=== PATIENT | female | born 1950 | race Caucasian/White ===

== ENCOUNTER → 2016-09-23 | Outpatient (CLI) | payer BC ==
--- NOTE | 2016-09-23 08:33 | US ---
EXAMINATION TYPE: US kidneys/renal and bladder DATE OF EXAM: 09/23/2016 7:46 AM COMPARISON: NONE CLINICAL HISTORY: ABN Renal Function Test R94.4, Chronic Kidney Dis. EXAM MEASUREMENTS: Right Kidney: 9.1 x 4.9 x 4.7cm Left Kidney: 9.6 x 5.2 x 6.4cm TECHNOLOGIST IMPRESSION: wnl Right Kidney: wnl Left Kidney: 2.9cm simple cyst seen superior pole Bladder: wnl Bilateral Jets seen: left jet seen There is no evidence for hydronephrosis at this point in time. No nephrolithiasis is seen. No leeann s are identified. The urinary bladder is anechoic. Bilateral ureteral jets are seen. IMPRESSION: Simple appearing, 2.9 cm, left upper Pole renal cyst.
== END | disposition home or self-care (01) ==
LOC: RADUSWWP 06:56
PROVIDERS: ATTEND Family Medicine
DX: N28.1 Cyst of kidney, acquired (principal); N18.1 Chronic kidney disease, stage 1
CPT/HCPCS: 76770

== ENCOUNTER → 2016-11-12 | Outpatient (CLI) | payer BC ==
[2016-11-12 10:41] LABS: CH 28.1; CHCM 32.4; HCT 44.4 % (34.0-46.0); HDW 2.42; HGB 14.2 gm/dL (11.4-16.0); MCH 27.9 pg (25.0-35.0); MCHC 32.1 g/dL (31.0-37.0); MCV 86.9 fL (80.0-100.0); Mean Platelet Volume 6.3; RBC 5.11 m/uL (3.80-5.40); RDW 13.2 % (11.5-15.5); WBC 7.9 k/uL (3.8-10.6)
[2016-11-12 10:44] LABS: ALT 37 U/L (9-52); AST 24 U/L (14-36); Alkaline Phosphatase 84 U/L (38-126); Anion Gap 9 mmol/L; Blood Urea Nitrogen 22 mg/dL (7-17); Calcium 9.4 mg/dL (8.4-10.2); Carbon Dioxide 26 mmol/L (22-30); Chloride 106 mmol/L (98-107); Glucose 102 mg/dL (74-99); Non-African American GFR(MDRD) 50 (>60 ml/min/1.73 sqM); Phosphorous 3.1 mg/dL (2.5-4.5); Potassium 4.3 mmol/L (3.5-5.1); Sodium 141 mmol/L (137-145); Total Bilirubin 0.6 mg/dL (0.2-1.3); Total Protein 6.8 g/dL (6.3-8.2)
[2016-11-12 10:49] LABS: Appearance,Urine Cloudy (Clear); Bilirubin,Urine Negative (Negative); Glucose,Urine (UA) Negative (Negative); Ketones,Urine Negative (Negative); Leukocyte Esterase,Urine Large (Negative); Mucus,Urine Few /hpf; Nitrite,Urine Negative (Negative); PH, Urine 5.5 (5.0-8.0); Particle Count 9071; Protein,Urine Trace (Negative); RBC,Urine 2 /hpf (0-5); Specific Gravity,Urine 1.017 (1.001-1.035); Squamous Epithelial Cell,Urine 5 /hpf (0-4); UA Billing (MACRO vs. MICRO) MICRO; Urobilinogen,Urine <2.0 mg/dL (<2.0); WBC,Urine 8 /hpf (0-5)
== END | disposition home or self-care (01) ==
LOC: LABWHC1 09:53
PROVIDERS: ATTEND Internal Medicine Nephrology
DX: D64.9 Anemia, unspecified (principal); E83.39 Other disorders of phosphorus metabolism; N39.0 Urinary tract infection, site not specified
CPT/HCPCS: 36415; 80053; 81001; 84100; 85027

== ENCOUNTER → 2017-08-24 | Outpatient (CLI) | payer MEDICARE ==
--- NOTE | 2017-08-25 09:16 | MM ---
Reason for exam: screening (asymptomatic). Last mammogram was performed 1 year and 1 month ago. History: Patient is postmenopausal. Family history of breast cancer in maternal aunt at age 43. Physical Findings: A clinical breast exam by your physician is recommended on an annual basis and results should be correlated with mammographic findings. MG 3D Screening Mammo W/Cad Bilateral CC and MLO view(s) were taken. Prior study comparison: July 09, 2016, bilateral MG screening mammo w CAD. May 16, 2015, bilateral MG screening mammo w CAD. June 14, 2008, mammogram, performed at [facility]. There are scattered fibroglandular densities. Finding: There are typically benign round calcifications in the right breast. There is no discrete abnormality. ASSESSMENT: Benign, BI-RAD 2 RECOMMENDATION: Routine screening mammogram of both breasts in 1 year.
== END | disposition home or self-care (01) ==
LOC: RADMAMWWP 12:30
PROVIDERS: ATTEND Family Medicine
DX: Z12.31 Encounter for screening mammogram for malignant neoplasm of breast (principal); Z80.3 Family history of malignant neoplasm of breast
CPT/HCPCS: 77063; 77067

== ENCOUNTER → 2018-06-22 | Outpatient (CLI) | payer MEDICARE ==
--- NOTE | 2018-06-22 12:48 | FL ---
EXAMINATION TYPE: FL barium swallow w video DATE OF EXAM: 06/22/2018 COMPARISON: NONE HISTORY: Reflux, dysphasia. The patient was evaluated in the lateral projection during real-time fluoroscopy, during ingestion of barium mixed with solids and liquids. No aspiration or laryngeal penetration. See report from [facility]. 44 seconds fluoroscopy time. No images obtained.
== END | disposition home or self-care (01) ==
LOC: RADFLMAIN 10:36
PROVIDERS: ATTEND Surgery
DX: R13.10 Dysphagia, unspecified (principal)
CPT/HCPCS: 74230

== ENCOUNTER → 2018-06-23 | Outpatient (CLI) | payer MEDICARE ==
--- NOTE | 2018-06-23 08:53 | FL ---
Barium swallow HISTORY: Dysphagia Patient was given high density barium to drink. 1.32 minutes fluoroscopy time, 12 images obtained. Note is made of a poor stripping wave. Tertiary esophageal contractions are identified. Sliding hiata l hernia is noted. Reflux from the mid to distal esophagus is noted proximally during the course of t he exam. Gastroesophageal reflux was not identified. No obstruction to flow, no evident extrinsic les ion. IMPRESSION: Tertiary esophageal contractions, poor stripping wave, sliding hiatal hernia.
== END | disposition home or self-care (01) ==
LOC: RADFLWHC 07:44
PROVIDERS: ATTEND Surgery
DX: K44.9 Diaphragmatic hernia without obstruction or gangrene (principal); K22.8 Other specified diseases of esophagus; R13.10 Dysphagia, unspecified
CPT/HCPCS: 74220

== ENCOUNTER → 2018-07-12 | Outpatient (CLI) | payer MEDICARE ==
--- NOTE | 2018-07-13 18:26 | ECHOS ---
STRESS ECHOCARDIOGRAM DATE OF SERVICE: 07/12/2018 INDICATIONS: Chest discomfort. MEDICATIONS: Maxalt. BASELINE HEART RATE: 72 BASELINE BLOOD PRESSURE: 133/98 MAXIMUM HEART RATE: 155 MAXIMUM BLOOD PRESSURE: 186/82 85% MPHR: 131 100% MPHR: 154 METS: 7.9 MAXIMUM STAGE REACHED: II TOTAL EXERCISE TIME: 6:31 CLINICAL INFORMATION: STRESS DATA: Pre-testing physical examination showed a heart rate of 72, pressure 133/98 mmHg. Baseline EKG showed sinus mechanism. The patient exercised on the treadmill according to Dashawn protocol for a total of 6 minutes and 31 seconds and achieved 7.9 METS. Maximum heart rate was 155, which is about 100% of maximum predicted heart rate. Maximum blood pressure was 186/52 mmHg. Clinically the patient developed chest discomfort and shortness of breath in response to exercise. The EKG showed about 1 to 1.5 mm horizontal and downsloping ST-segment changes. ECHOCARDIOGRAM IMAGES: Echocardiogram images from parasternal long axis view, parasternal short axis view, apical 4-chamber and apical 2-chamber views were obtained as baseline images at the peak of the heart rate as well as on recovery. The echocardiogram images did not show any evidence of wall motion abnormalities concerning for ischemia. CONCLUSION: 1. Good exercise tolerance. 2. Abnormal EKG in response to exercise with about 1.[address]-segment changes concerning for ischemia. 3. Chest discomfort and shortness of breath in response to exercise as well. 4. Normal echocardiogram in response to exercise without any evidence of wall motion abnormalities concerning for ischemia. MMODL / IJN: [id number] /
== END | disposition home or self-care (01) ==
LOC: RADNMMAIN 08:57
PROVIDERS: ATTEND Family Medicine
DX: R94.31 Abnormal electrocardiogram [ECG] [EKG] (principal); R07.89 Other chest pain; R06.02 Shortness of breath; Z88.2 Allergy status to sulfonamides
CPT/HCPCS: 93351

== ENCOUNTER 2018-07-21 14:20 | Emergency (ER) | payer MEDICARE ==
[2018-07-21 14:41] VITALS: TEMP 97.9
[2018-07-21 15:41] LABS: Basophils # (A) 0.1 k/uL (0-0.2); Basophils % (A) 1 %; Eosinophils # (A) 0.1 k/uL (0-0.7); Eosinophils % (A) 1 %; HCT 46.6 % (34.0-46.0); HGB 14.9 gm/dL (11.4-16.0); Lymphocytes # (A) 1.8 k/uL (1.0-4.8); Lymphocytes % (A) 21 %; MCH 27.4 pg (25.0-35.0); MCHC 31.9 g/dL (31.0-37.0); MCV 85.8 fL (80.0-100.0); Monocytes # (A) 0.4 k/uL (0-1.0); Monocytes % (A) 4 %; Neutrophils # (A) 6.3 k/uL (1.3-7.7); Neutrophils % (A) 72 %; Platelet Count 405 k/uL (150-450); RBC 5.43 m/uL (3.80-5.40); RDW 13.5 % (11.5-15.5); WBC 8.8 k/uL (3.8-10.6)
[2018-07-21 15:52] LABS: Albumin 4.6 g/dL (3.5-5.0); Calcium 10.2 mg/dL (8.4-10.2); Creatine Kinase 171 U/L (30-135); Magnesium 2.3 mg/dL (1.6-2.3); Partial Thromboplastin Time 23.9 sec (22.0-30.0); Potassium 4.3 mmol/L (3.5-5.1); Prothrombin Time 9.6 sec (9.0-12.0); Total Bilirubin 0.4 mg/dL (0.2-1.3); Total Protein 7.5 g/dL (6.3-8.2)
--- NOTE | 2018-07-21 15:53 | XR ---
EXAMINATION TYPE: XR chest 2V DATE OF EXAM: 07/21/2018 COMPARISON: NONE TECHNIQUE: PA and lateral views submitted. HISTORY: Chest pain FINDINGS: The lungs are clear and there is no pneumothorax, pleural effusion, or focal pneumonia. Hypertrophi c change of the spine noted. No overt failure. Biapical pleural thickening. IMPRESSION: 1. No acute process.
[2018-07-21 16:03] LABS: Creatine Kinase MB 3.3 ng/mL (0.0-2.4); Troponin I <0.012 ng/mL (0.000-0.034)
[2018-07-21 17:25] VITALS: RESP 16
--- NOTE | 2018-07-21 18:11 | ED ---
Chest Pain HPI - General Chief Complaint: Chest Pain Stated Complaint: chest pain, into arm and back Time Seen by Provider: 07/21/18 17:13 Source: patient, RN notes reviewed, old records reviewed Mode of arrival: wheelchair Limitations: no limitations - History of Present Illness Initial Comments: This is a 67-year-old female the ER for evaluation. She presents today with new chest pain chest pain left-sided left arm. A she has no significant cardiac risk factors no prior cardiac disease. Patient was seen by her family doctor secondary to chronic chest pain for about 3 months chest pain was underneath her left breast. She did have an outpatient stress test which she was told was ischemic, she followed up with cardiology. Cardiology did not make appointment until the middle of this next months. Patient states pain has persisted worse with exact worse with exercise, she does get diaphoretic. Patient is having continued pain currently MD Complaint: chest pain -: month(s) (3) Onset: during rest, during exertion Pain Location: left chest Pain Radiation: LUE Severity: moderate Severity scale (1-10): 4 Quality: tightness, aching, heaviness Consistency: constant Improves With: nothing Worsens With: exertion Anginal Symptoms: diaphoresis, dyspnea Other Symptoms: other (None) Treatments Prior to Arrival: none - Related Data Home Medications Medication Instructions Recorded Confirmed Rizatriptan Benzoate [Maxalt] 10 mg PO BID PRN 05/22/15 07/21/18 [id number] 1 - 2 tab PO Q4HR PRN 07/21/18 07/21/18 [Excedrin] Allergies Allergy/AdvReac Type Severity Reaction Status Date / Time Sulfa (Sulfonamide Allergy Severe Anaphylaxis Verified 07/21/18 17:40 Antibiotics) Review of Systems ROS Statement: Those systems with pertinent positive or pertinent negative responses have been documented in the HPI. ROS Other: All systems not noted in ROS Statement are negative. Past Medical History Past Medical History: Renal Disease Additional Past Medical History / Comment(s): ISCHMEIA to heart History of Any Multi-Drug Resistant Organisms: None Reported Past Surgical History: Cholecystectomy, Hysterectomy Additional Past Surgical History / Comment(s): catarac Past Psychological History: No Psychological Hx Reported Smoking Status: Never smoker Past Alcohol Use History: None Reported Past Drug Use History: None Reported General Exam Limitations: no limitations General appearance: alert, in no apparent distress Head exam: Present: atraumatic, normocephalic, normal inspection Eye exam: Present: normal appearance, PERRL, EOMI. Absent: scleral icterus, conjunctival injection, periorbital swelling ENT exam: Present: normal exam, mucous membranes moist Neck exam: Present: normal inspection. Absent: tenderness, meningismus, lymphadenopathy Respiratory exam: Present: normal lung sounds bilaterally. Absent: respiratory distress, wheezes, rales, rhonchi, stridor Cardiovascular Exam: Present: regular rate, normal rhythm, normal heart sounds. Absent: systolic murmur, diastolic murmur, rubs, gallop, clicks GI/Abdominal exam: Present: soft, normal bowel sounds. Absent: distended, tenderness, guarding, rebound, rigid Extremities exam: Present: normal inspection, full ROM, normal capillary refill. Absent: tenderness, pedal edema, joint swelling, calf tenderness Back exam: Present: normal inspection Neurological exam: Present: alert, oriented X3, CN II-XII intact Psychiatric exam: Present: normal affect, normal mood Skin exam: Present: warm, dry, intact, normal color. Absent: rash Course Vital Signs 07/21/18 07/21/18 07/21/18 14:36 17:23 19:18 Temperature 97.9 F Pulse Rate 102 H 86 83 Respiratory 18 16 16 Rate Blood Pressure 150/107 143/88 118/80 O2 Sat by Pulse 96 95 97 Oximetry - Reevaluation(s) Reevaluation #1: 07/21/18 20:53 Medical record is reviewed including prior stress echocardiogram showing ischemia Reevaluation #2: 07/21/18 20:53 Patient states that after spending much time in both the waiting room and waiting to be seen, she does not want to stay in this hospital Are, she will follow-up with cardiology going forward, patient signed out AGAINST MEDICAL ADVICE with knowledge of ischemic stress test, likelihood for cardiac event is increased. Patient understands risk able making medical decisions and will be signing out against medical Chest Pain MDM - MDM 67 female the ER with chest pain today. Patient has normal EKG and normal troponin will be admitted for cardiac observation and treatment, patient refusing inpatient stay at this time, patient signed out AGAINST MEDICAL ADVICE Critical Care Time Critical Care Time: Yes Total Critical Care Time: 31 Disposition Clinical Impression: Chest pain Disposition: Left Against Medical Advice Condition: Undetermined Is patient prescribed a controlled substance at d/c from ED?: No
[2018-07-21] MEDS ORDERED: NITROGLYCERIN SL TABS 0.4 MG TAB SUBLINGUAL PRN (19:02)
[2018-07-21] MEDS ORDERED: HEPARIN SODIUM,PORCINE 5,000 UNIT/ML 1 ML VIAL IV ONE (19:02)
[2018-07-21] MEDS ORDERED: HEPARIN SODIUM,PORCINE 5,000 UNIT/ML 1 ML VIAL IV PRN (19:02)
[2018-07-21] MEDS ORDERED: ASPIRIN 81 MG PO STA (19:02)
[2018-07-21] MEDS ORDERED: HEPARIN SOD,PORK IN 0.45% NACL 25,000 UNIT in 0.45% NACL 1 500ML.BAG IV SCH (19:15)
[2018-07-21 19:20] VITALS: BP 118/80; PULSE 83
[2018-07-21] MEDS ORDERED: METOPROLOL TARTRATE 25 MG TAB PO SCH (21:00)
[2018-07-22] MEDS ORDERED: ASPIRIN 325 MG TAB PO SCH (09:00)
== END 2018-07-21 19:48 | disposition left against medical advice (07) ==
LOC: EC 14:20 → 1SOBS 19:02 → UNDOADMOB 19:02 → EC 19:48
DX: R07.9 Chest pain, unspecified (principal); M79.602 Pain in left arm; R61 Generalized hyperhidrosis; Z90.49 Acquired absence of other specified parts of digestive tract; Z90.710 Acquired absence of both cervix and uterus
CPT/HCPCS: 36415; 71046; 80053; 82550; 82553; 83735; 84484; 85025; 85610; 85730; 93005; 99291

== ENCOUNTER → 2018-08-08 | Outpatient (CLI) | payer MEDICARE ==
--- NOTE | 2018-08-08 15:00 | NM ---
Nuclear medicine hepatobiliary scan. HISTORY: Pain. DOSAGE: The patient 8 ounces of ensure plus and 4.6 mCi of Technetium 99m Choletec. FINDINGS: There is normal hepatic extraction. The gallbladder is seen by 20 minutes. There is bilia ry to bowel clearance by 25 minutes. Ejection fraction is 71%. IMPRESSION: 1. Normal hepatobiliary exam
== END ==
LOC: RADNMMAIN 12:40
PROVIDERS: ATTEND Family Medicine
DX: R10.11 Right upper quadrant pain (principal); Z88.2 Allergy status to sulfonamides
CPT/HCPCS: 78226; A9537

== ENCOUNTER → 2018-08-25 | Outpatient (CLI) | payer MEDICARE ==
--- NOTE | 2018-08-26 07:56 | MM ---
Reason for exam: screening (asymptomatic). Last mammogram was performed 1 year ago. History: Patient is postmenopausal. Family history of breast cancer in maternal aunt at age 43. Physical Findings: A clinical breast exam by your physician is recommended on an annual basis and results should be correlated with mammographic findings. MG 3D Screening Mammo W/Cad Bilateral CC and MLO view(s) were taken. Prior study comparison: August 24, 2017, bilateral MG 3d screening mammo w/cad. July 09, 2016, bilateral MG screening mammo w CAD. The breast tissue is heterogeneously dense. This may lower the sensitivity of mammography. There is no discrete abnormality. No significant changes when compared with prior studies. ASSESSMENT: Negative, BI-RAD 1 RECOMMENDATION: Routine screening mammogram of both breasts in 1 year.
== END | disposition home or self-care (01) ==
LOC: RADMAMWWP 07:25
PROVIDERS: ATTEND Family Medicine
DX: Z12.31 Encounter for screening mammogram for malignant neoplasm of breast (principal); Z80.3 Family history of malignant neoplasm of breast
CPT/HCPCS: 77063; 77067

== ENCOUNTER → 2018-10-11 | Outpatient (CLI) | payer MEDICARE | END | disposition home or self-care (01) | LOC: LABWHC1 09:25 | PROVIDERS: ATTEND Surgery | DX: R19.7 Diarrhea, unspecified (principal) | CPT/HCPCS: 87045; 87046; 87324 ==

== ENCOUNTER → 2019-07-12 | Outpatient (CLI) | payer MEDICARE ==
--- NOTE | 2019-07-12 16:31 | MR ---
EXAMINATION TYPE: MR brain wo con DATE OF EXAM: 07/12/2019 COMPARISON: CT brain June 04, 2016. HISTORY: migraines, tingling in left side of mouth TECHNIQUE: Multiplanar, multisequence imaging of the brain and brainstem is performed without IV cont rast. FINDINGS: Diffusion weighted images demonstrate no evidence of a recent infarct or other diffusion abnormality. There is no worrisome extra-axial fluid collection. There is diffuse ventricular sulcal prominence. T here are areas of T2 hyperintensity scattered throughout the white matter most prominent periventricu lar levels. Midline structures demonstrate normal morphology. The craniocervical junction appears within normal limits. Normal vascular flow voids are present. The visualized sinuses are clear and the globes are i ntact. IMPRESSION: [id number] diffuse cerebral atrophy and mild to moderate nonspecific white matter c hanges may be on basis of altered vascular mechanics related to product of migraine headaches and/or products of chronic small vessel ischemic change among possible etiologies.
== END | disposition home or self-care (01) ==
LOC: RADMRIMAIN 14:56
PROVIDERS: ATTEND Nurse Practitioner Women's Health
DX: G31.9 Degenerative disease of nervous system, unspecified (principal); R90.89 Other abnormal findings on diagnostic imaging of central nervous system; R29.810 Facial weakness; R20.2 Paresthesia of skin; Z86.73 Personal history of transient ischemic attack (TIA), and cerebral infarction without residual deficits
CPT/HCPCS: 70551

== ENCOUNTER → 2019-09-18 | Outpatient (CLI) | payer MEDICARE ==
--- NOTE | 2019-09-18 13:20 | XR ---
EXAMINATION TYPE: XR chest 2V DATE OF EXAM: 09/18/2019 COMPARISON: Prior chest x-ray 07/21/2018 HISTORY: Cough TECHNIQUE: Frontal and lateral views of the chest are obtained. FINDINGS: There is no focal air space opacity, pleural effusion, or pneumothorax seen. The cardiac silhouette size is within normal limits. The osseous structures are intact. Right hemidiaphragm aga in elevated. IMPRESSION: No acute cardiopulmonary process.
== END | disposition home or self-care (01) ==
LOC: RADXRMAIN 10:32
PROVIDERS: ATTEND Nurse Practitioner Women's Health
DX: R05 Cough (principal)
CPT/HCPCS: 71046

== ENCOUNTER → 2019-10-03 | Outpatient (CLI) | payer MEDICARE ==
--- NOTE | 2019-10-03 10:50 | BD ---
EXAMINATION TYPE: Axial Bone Density DATE OF EXAM: 10/03/2019 COMPARISON: NONE CLINICAL HISTORY: Height: 63.5 IN Weight: 222 LBS FRAX RISK QUESTIONS: Secondary Osteoporosis: 3. Menopause before 45: YES PARTIAL HYST AGE 33 RISK FACTORS HISTORY OF: Active: YES Diet low in dairy products/other sources of calcium: NO Postmenopausal woman: YES PARTIAL HYST AGE 33 Take estrogen and/or progesterone medications: NOT NOW How long: TOOK FOR 4 YEARS MEDICATIONS: Additional Medications: VIT D, MIGRAINE MEDS, HEART MEDS, CHOLESTEROL MEDS EXAM MEASUREMENTS: Bone mineral densitometry was performed using the [employer] System. Bone mineral density as measured about the Lumbar spine is: ----- L1-L4(G/cm2): 1.135 T Score Values are as follows: ----- L2: -1.0 ----- L3: 0.1 ----- L4: 0.3 ----- L1-L4: -0.4 Bone mineral density BASELINE Bone mineral density about the R hip (g/cm2): 0.929 Bone mineral density about the L hip (g/cm2): 0.951 T Score values are as follows: -----R Neck: -0.8 -----L Neck: -0.6 -----R Total: 0.4 -----L Total: 0.3 Bone mineral density BASELINE IMPRESSION: No evidence for osteoporosis or osteopenia. NOTE: T-SCORE=SD OF THE YOUNG ADULT MEAN.
--- NOTE | 2019-10-04 10:36 | MM ---
Reason for exam: screening (asymptomatic). Last mammogram was performed 1 year and 1 month ago. History: Patient is postmenopausal. Family history of breast cancer in maternal aunt at age 43. Physical Findings: A clinical breast exam by your physician is recommended on an annual basis and results should be correlated with mammographic findings. MG 3D Screening Mammo W/Cad Bilateral CC and MLO view(s) were taken. Prior study comparison: August 25, 2018, bilateral MG 3d screening mammo w/cad. August 24, 2017, bilateral MG 3d screening mammo w/cad. There are scattered fibroglandular densities. No suspicious abnormality. No significant changes when compared with prior studies. ASSESSMENT: Negative, BI-RAD 1 RECOMMENDATION: Routine screening mammogram of both breasts in 1 year.
== END | disposition home or self-care (01) ==
LOC: RADMAMWWP 09:29
PROVIDERS: ATTEND Family Medicine
DX: Z12.31 Encounter for screening mammogram for malignant neoplasm of breast (principal); Z80.3 Family history of malignant neoplasm of breast; Z78.0 Asymptomatic menopausal state
CPT/HCPCS: 77063; 77067; 77080

== ENCOUNTER → 2020-02-05 | Outpatient (CLI) | payer MEDICARE ==
--- NOTE | 2020-02-05 08:28 | US ---
EXAMINATION TYPE: US abdomen complete DATE OF EXAM: 02/05/2020 COMPARISON: None CLINICAL HISTORY: 69-year-old female R10.9 Unspecified abdominal pain. LLQ pain x 6 months TECHNIQUE: Multiple sonographic images of the abdomen are obtained. FINDINGS: EXAM MEASUREMENTS: Liver Length: 17.0 cm Gallbladder Wall: 0.2 cm CBD: 0.5 cm Spleen: 8.9 cm Right Kidney: 9.4 x 7.0 x 4.6 cm Left Kidney: 9.6 x 5.1 x 5.5 cm Pancreas: Irregular low echo, possibly cystic 8 x 8 x 7 mm area along the distal pancreatic body. Liver: fatty liver is hyperechoic to right renal cortex, liver attenuated posteriorly with focal fat ty sparing near gallbladder Gallbladder: Borderline hydropic at 4.0 cm wide. No wall thickening, pericholecystic fluid, or shado wing calculi. Evidence for sonographic Parker's sign: no CBD: wnl Spleen: wnl Right Kidney: Possible focal lower pole caliectasis. No pelvic dilatation. Short interval follow-up c ould reassess. Left Kidney: couple of renal cysts seen with larger medial pole = 2.6 x 2.3 x 2.8cm (previously maryjane ured 2.9 x 2.5 x 2.2 cm); partially calcified wall noted on image # 88. No hydronephrosis. Upper IVC: wnl Abd Aorta: wnl IMPRESSION: 1. At least moderate hepatic steatosis. Correlate with LFTs, lipid profile, the patient was factors. 2. Borderline hydropic gallbladder probably due to fasting state. No cholelithiasis or ancillary find ings of acute cholecystitis. 3. A 2.8 cm left renal cyst likely Bosniak category 2 given thin partial wall calcification. Size is stable back to 2017 suggesting a benign etiology. 4. Possible focal lower pole caliectasis involving the right kidney. No saira hydronephrosis. Conside r short interval follow-up in 4 weeks to reassess.
== END | disposition home or self-care (01) ==
LOC: RADUSWWP 07:14
PROVIDERS: ATTEND Internal Medicine Gastroenterology
DX: K76.0 Fatty (change of) liver, not elsewhere classified (principal); N28.1 Cyst of kidney, acquired
CPT/HCPCS: 76700

== ENCOUNTER → 2020-02-09 | Outpatient (CLI) | payer MEDICARE ==
--- NOTE | 2020-02-09 15:43 | MR ---
EXAMINATION TYPE: MR brain wo con DATE OF EXAM: 02/09/2020 COMPARISON: 07/12/2019 HISTORY: White matter changes, compare to prior MRI 07-12-19 CONTRAST: Performed utilizing 0 mL intravenous Gadavist gadolinium contrast. TECHNIQUE: Multiplanar, multiecho imaging on a 3.0 Annette magnet is performed through the brain. Stud y is performed within 24 hours of arrival to the hospital. The craniovertebral junction is normal. The pituitary is normal. Diffusion-weighted imaging is performed. No abnormal hyperintensity is present to suggest an acute i ntracranial infarct or acute ischemic change. There are scattered periventricular white matter hyperintensity on T2 and inversion recovery weighted sequences which can be compatible with some microvascular ischemic change . Ventricles and sulci are prominent for the patient age. IMPRESSIONS: 1. Atrophy with periventricular white matter ischemic changes. Findings appear stable over the interv al.
== END | disposition home or self-care (01) ==
LOC: RADMRIMAIN 11:38
PROVIDERS: ATTEND Psychiatry & Neurology Neurology
DX: G31.9 Degenerative disease of nervous system, unspecified (principal); R90.82 White matter disease, unspecified; I67.82 Cerebral ischemia; Z88.2 Allergy status to sulfonamides
CPT/HCPCS: 70551

== ENCOUNTER → 2020-03-01 | Outpatient (CLI) | payer MEDICARE ==
--- NOTE | 2020-03-01 20:32 | MR ---
MRCP HISTORY: Abnormal liver findings, left-sided abdomen pain Multiplanar multisequence imaging through the abdomen, three-dimensional reconstructions through the biliary system Correlation ultrasound abdomen 02/05/2020 Liver shows signal loss on out of phase imaging consistent with hepatic steatosis. The liver is enlar ged. Gallbladder is unremarkable. There is focal area of low signal present within the distal common bile duct seen on coronal image 18 of the T2 data set, this likely represents volume averaging as thi s is not reproduced on axial images or on the three-dimensional reconstructions. Within the pancreas there is a small cystic foci along the head and tail of the pancreas, multilocula r appearance is present, largest T2 bright focus measures only approximately 6 mm. There is no pancre atic ductal dilatation. There is no ascites or retroperitoneal adenopathy. The adrenal glands, aorta show an unremarkable allyn earance. Multiple cystic foci are associated with the kidneys, there may be parapelvic cysts as well as cortical cysts, largest cyst midpole the left kidney measures 3.8 cm. Lung bases are clear. No pleural or pericardial effusion. There is a small hiatal hernia. No bowel ob struction. IMPRESSION: Findings could represent intraductal papillary mucinous neoplasm, sequela of chronic panc reatitis, serous cystadenoma, follow-up could BE performed to assess for stability. Hepatic steatosis , hepatomegaly.
== END | disposition home or self-care (01) ==
LOC: RADMRIMAIN 16:42
PROVIDERS: ATTEND Physician Assistant
DX: K76.0 Fatty (change of) liver, not elsewhere classified (principal)
CPT/HCPCS: 74181

== ENCOUNTER → 2020-03-06 | Outpatient (CLI) | payer MEDICARE ==
[2020-03-06 08:37] LABS: HGB 14.5 gm/dL (11.4-16.0); MCH 27.7 pg (25.0-35.0); MCHC 32.1 g/dL (31.0-37.0); MCV 86.4 fL (80.0-100.0); Mean Platelet Volume 7.3; Platelet Count 363 k/uL (150-450); RBC 5.21 m/uL (3.80-5.40); RDW 13.3 % (11.5-15.5); WBC 7.3 k/uL (3.8-10.6)
[2020-03-06 16:24] LABS: African American GFR (CKD) 59.7 (60.0-200.0); Albumin 4.4 g/dL (3.80-4.90); Albumin/Globulin Ratio 2.32 (1.60-3.17); Anion Gap 10.1 mmol/L (4.00-12.00); BUN/Creat Ratio 21.82 Ratio (12.00-20.00); Calcium 9.3 mg/dL (8.7-10.3); Carbon Dioxide 17.9 mmol/L (21.6-31.8); Globulin 1.9 g/dL (1.6-3.3); Non-African American GFR(CKD) 51.5 (60.0-200.0); Potassium 4.1 mmol/L (3.5-5.5); Total Bilirubin 0.5 mg/dL (0.3-1.2); Total Protein 6.3 g/dL (6.2-8.2)
== END | disposition home or self-care (01) ==
LOC: LABWHC1 07:27
PROVIDERS: ATTEND Physician Assistant
DX: K86.89 Other specified diseases of pancreas (principal)
CPT/HCPCS: 36415; 80053; 85027; 86301

== ENCOUNTER → 2020-09-12 | Outpatient (CLI) | payer MEDICARE ==
--- NOTE | 2020-09-12 16:06 | US ---
EXAMINATION TYPE: US kidneys/renal and bladder DATE OF EXAM: 09/12/2020 COMPARISON: NONE CLINICAL HISTORY: N18.31 STAGE 3 CKD. EXAM MEASUREMENTS: Right Kidney: 9.5 x 4.4 x 4.8 cm Left Kidney: 10.2 x 5.9 x 5.5 cm Right Kidney: Possible focal lower pole caliectasis involving the right kidney Left Kidney: 2.6 x 3.4 x 2.6cm cyst, 1.2 x 1.1 x 1.2cm Bladder: wnl IMPRESSION: 1. Left renal cyst
== END | disposition home or self-care (01) ==
LOC: RADUSWWP 13:29
PROVIDERS: ATTEND Internal Medicine Nephrology
DX: N28.1 Cyst of kidney, acquired (principal); N18.31 Chronic kidney disease, stage 3a
CPT/HCPCS: 76770

== ENCOUNTER → 2021-09-01 | Outpatient (CLI) | payer MEDICARE ==
--- NOTE | 2021-09-01 12:48 | MM ---
Reason for exam: screening (asymptomatic). Last mammogram was performed 1 year and 11 months ago. History: Patient is postmenopausal and history of other cancer. Family history of breast cancer in maternal aunt at age 43. Physical Findings: A clinical breast exam by your physician is recommended on an annual basis and results should be correlated with mammographic findings. MG 3D Screening Mammo W/Cad Bilateral CC and MLO view(s) were taken. Prior study comparison: October 03, 2019, bilateral MG 3d screening mammo w/cad. August 25, 2018, bilateral MG 3d screening mammo w/cad. There are scattered fibroglandular densities. Finding #1: New architectural distortion in the axilla position of the left breast consistent with known excisonal changes from . Finding #2: There are typically benign round calcifications in both breasts. There is no discrete abnormality. ASSESSMENT: Probably benign, BI-RAD 3 RECOMMENDATION: Routine screening mammogram of both breasts in 1 year. Manage on a clinical basis with regard to left axilla surgical changes.
== END | disposition home or self-care (01) ==
LOC: RADMAMWWP 07:12
PROVIDERS: ATTEND Family Medicine
DX: Z12.31 Encounter for screening mammogram for malignant neoplasm of breast (principal); Z78.0 Asymptomatic menopausal state; Z80.3 Family history of malignant neoplasm of breast
CPT/HCPCS: 77063; 77067

== ENCOUNTER → 2021-09-02 | Outpatient (CLI) | payer MEDICARE | END | disposition home or self-care (01) | LOC: LABWHC1 10:25 | PROVIDERS: ATTEND Nurse Practitioner Adult Health | DX: R00.2 Palpitations (principal) | CPT/HCPCS: 36415; 84443; 84481 ==

== ENCOUNTER → 2024-01-27 | Outpatient (CLI) | payer MEDICARE ==
[2024-01-27 11:15] LABS: % Iron Saturation 26.89 (12.00-45.00); ALT 16 U/L (8-44); AST 17 U/L (13-35); Albumin 4.2 g/dL (3.8-4.9); Alkaline Phosphatase 65 U/L (41-126); BUN/Creat Ratio 18.11 Ratio (12.00-20.00); Blood Urea Nitrogen 16.3 mg/dL (9.0-27.0); Calcium 9.4 mg/dL (8.7-10.3); Carbon Dioxide 21.6 mmol/L (21.6-31.8); Chloride 106 mmol/L (96-109); Ferritin 92.9 ng/mL (10.0-291.0); Globulin 2.1 g/dL (1.6-3.3); Glucose 122 mg/dL (70-110); Iron 82 UG/DL (50-170); Potassium 4.3 mmol/L (3.5-5.5); Sodium 143 mmol/L (135-145); T4, Free (Free Thyroxine) 1.06 ng/dL (0.80-1.80); Total Bilirubin 0.5 mg/dL (0.3-1.2); Total Iron Binding Capacity 305 UG/DL (228-460); Total Protein 6.3 g/dL (6.2-8.2)
[2024-01-27 13:34] LABS: Basophils # (A) 0.06 X 10*3/uL (0.00-0.10); Basophils % (A) 0.8 %; Eosinophils # (A) 0.24 X 10*3/uL (0.04-0.35); Eosinophils % (A) 3.2 %; HCT 42.4 % (37.2-46.3); HGB 13.9 g/dL (12.0-15.0); Lymphocytes # (A) 2.06 X 10*3/uL (0.90-5.00); Lymphocytes % (A) 27.2 %; MCH 28.3 pg (27.0-32.0); MCHC 32.8 g/dL (32.0-37.0); MCV 86.4 FL (80.0-97.0); Mean Platelet Volume 10.3 FL (9.5-12.2); Monocytes # (A) 0.42 X 10*3/uL (0.20-1.00); Monocytes % (A) 5.5 %; NRBC Per 100 WBC 0 X 10*3/uL (0.00-0.01); Neutrophils # (A) 4.77 X 10*3/uL (1.80-7.70); Platelet Count 346 X 10*3/uL (140-440); RBC 4.91 X 10*6/uL (4.10-5.20); RDW 13.1 % (11.5-14.5); WBC 7.57 X 10*3/uL (4.50-10.00)
[2024-01-27 16:36] LABS: Erythrocyte Sedimentation Rate 27 mm/Hr (0-30)
== END | disposition home or self-care (01) ==
LOC: LABWHC1 07:11
PROVIDERS: ATTEND Family Medicine
DX: M25.562 Pain in left knee (principal); R53.82 Chronic fatigue, unspecified
CPT/HCPCS: 36415; 80053; 82306; 82525; 82607; 82728; 83540; 83550; 84439; 84443; 84481; 85025; 85652; 86038

== ENCOUNTER → 2024-06-21 | Outpatient (CLI) | payer MEDICARE ==
--- NOTE | 2024-06-22 12:35 | MM ---
Reason for Exam: Screening (asymptomatic). Last mammogram was performed 1 year(s) and 8 month(s) ago. Patient History: Menarche at age 16. First Full-Term at age 21. Hysterectomy at age 38. Postmenopausal. Other cancer, age 69. Maternal aunt had breast cancer, age 43. Risk Values: Zara 5 year model risk: 1.4%. NCI Lifetime model risk: 3.8%. Prior Study Comparison: 10/03/2019 Bilateral Screening Mammogram, [facility]. 09/01/2021 Bilateral Screening Mammogram, [facility]. 10/14/2022 Bilateral MG 3D screening mammo w/cad, [facility]. Tissue Density: There are scattered areas of fibroglandular density. Findings: Analyzed By CAD. There is no suspicious group of microcalcifications or new suspicious mass in either breast. Overall Assessment: Negative, BI-RAD 1 Management: Screening Mammogram of both breasts in 1 year. . Patient should continue monthly self-breast exams. A clinical breast exam by your physician is recommended on an annual basis. This exam should not preclude additional follow-up of suspicious palpable abnormalities. Note on Zara scores and lifetime risk: 1. A Zara score greater than 3% is considered moderate risk. If this is the case, consider specialist referral to assess eligibility for a risk reducing agent. 2. If overall lifetime risk for the development of breast cancer is 20% or higher, the patient may qualify for future screening with alternating mammogram and breast MRI. [facility], , 06/22/2024 12:32 PM. Electronically signed and approved by: Julian Laird M.D. Radiologist
== END | disposition home or self-care (01) ==
LOC: RADMAMWWP 10:01
PROVIDERS: ATTEND Family Medicine
DX: Z12.31 Encounter for screening mammogram for malignant neoplasm of breast (principal); R92.323 Mammographic fibroglandular density, bilateral breasts; Z78.0 Asymptomatic menopausal state; Z80.3 Family history of malignant neoplasm of breast
CPT/HCPCS: 77063; 77067

== ENCOUNTER → 2024-12-27 | Outpatient (CLI) | payer MEDICARE ==
[2024-12-27 15:21] LABS: HCT 45.5 % (37.2-46.3); HGB 14.4 g/dL (12.0-15.0); MCH 27.6 pg (27.0-32.0); MCHC 31.6 g/dL (32.0-37.0); MCV 87.2 FL (80.0-97.0); Mean Platelet Volume 9.2 FL (9.5-12.2); NRBC Per 100 WBC 0 X 10*3/uL (0.00-0.01); Platelet Count 408 X 10*3/uL (140-440); RBC 5.22 X 10*6/uL (4.10-5.20); RDW 13.2 % (11.5-14.5); WBC 9.74 X 10*3/uL (4.50-10.00)
[2024-12-27 17:05] LABS: Anion Gap 13.9 mmol/L (4.00-12.00); Carbon Dioxide 22.1 mmol/L (21.6-31.8); Potassium 4.4 mmol/L (3.5-5.5)
== END | disposition home or self-care (01) ==
LOC: LABWHC1 08:34
PROVIDERS: ATTEND Orthopaedic Surgery
DX: Z01.812 Encounter for preprocedural laboratory examination (principal); M23.92 Unspecified internal derangement of left knee
CPT/HCPCS: 36415; 80051; 85027

== ENCOUNTER 2025-01-10 07:00 | Day surgery (SDC) | payer MEDICARE ==
[~2025-01-10 07:00] MED LIST: ACETAMINOPHEN TAB 500 MG TAB PO PRN; HYDROmorphone 0.5 MG/0.5 ML SYRINGE IVP PRN; MELOXICAM 7.5 MG TAB PO PRN; TRANEXAMIC 1,000 MG/100ML-NACL 1,000 MG in SALINE 1 100ML.BAG IVPB PRN
[2025-01-10] MEDS: IV FLUID CONTINUATION 1,000 ML IV ONE ×2 (07:50)
[2025-01-10] MEDS: LACTATED RINGERS 1,000 ML IV SCH (07:52)
[2025-01-10] MEDS: ONDANSETRON 4 MG/2 ML VIAL IVP ONE (07:54)
[2025-01-10] MEDS: DEXAMETHASONE SOD PHOSPHATE 4 MG/ML 1 ML VIAL IV ONE (07:54)
--- NOTE | 2025-01-10 08:18 | HP ---
HISTORY AND PHYSICAL DATE OF SURGERY: 01/10/2025. HISTORY: Loretta Ruiz is a 74-year-old patient seen with progressive left knee pain. We discussed options regarding treatment. She elected to proceed with left knee arthroscopy. Consent regarding the procedure was obtained. Cardiac clearance was provided by Dr. Davenport. PAST MEDICAL HISTORY: Cardiovascular disease/arrhythmia. PAST SURGICAL HISTORY: Knee arthroscopy. DAILY MEDICATIONS: Metoprolol. ALLERGIES: Sulfa. SOCIAL HISTORY: She denies tobacco use. PHYSICAL EXAMINATION: Evaluation of the left knee; range of motion 0-130 degrees. There is a mild effusion. Tenderness along the medial and lateral joint lines. Positive medial Jean-Paul's. Positive lateral Jean-Paul's. Ligaments stable. Hip rotation without pain. Distal neurovascular exam intact. IMAGING STUDIES: Left knee radiographs revealed [id number] osteoarthritic changes. MRI of the left knee revealed lateral meniscal tear. IMPRESSION: 1. Internal derangement of left knee lateral meniscal tear. 2. History of cardiac arrhythmia. PLAN: Left knee arthroscopy with partial lateral meniscectomy and debridement. MMODL / IJN: [id number] /
[2025-01-10] MEDS ORDERED: fentaNYL (PF) 50 MCG/ML 2 ML AMP ONE (08:26)
[2025-01-10] MEDS ORDERED: PROPOFOL 10 MG/ML 20 ML VIAL IV ONE (08:26)
[2025-01-10] MEDS ORDERED: KETOROLAC 15 MG/ML 1 ML VIAL ONE (08:26)
[2025-01-10] MEDS ORDERED: MIDAZOLAM 2 MG/2 ML VIAL ONE (08:26)
[2025-01-10] MEDS ORDERED: LIDOCAINE 1% INJ 10MG/ML (20 ML MDV) ONE (08:26)
[2025-01-10] MEDS: ceFAZolin 2 GM in DEXTROSE 5% IN WATER 50 ML IVPB PRN (08:30)
[2025-01-10] MEDS: BUPIVACAINE (PF) 0.25% 30 ML VIAL INTRAARTIC ONE (08:49)
[2025-01-10 09:26] VITALS: TEMP 97.1
--- NOTE | 2025-01-10 09:26 | P.OP ---
Date of Procedure: 01/10/25 Preoperative Diagnosis: Internal derangement left knee Postoperative Diagnosis: 1. Tear medial and lateral meniscus left knee 2. Grade IV chondromalacia medial femoral condyle left knee 3. Reactive synovitis medial, lateral and suprapatellar compartments left knee Procedure(s) Performed: 1. Arthroscopic partial medial and lateral meniscectomy left knee 2. Arthroscopic microfracture medial femoral condyle left knee 3. Arthroscopic partial synovectomy medial, lateral and suprapatellar compartments left knee 4. Arthroscopic chondroplasty medial femoral condyle left knee Anesthesia: JOSELITOA, local Surgeon: Jun Quijano Estimated Blood Loss (ml): 6 Pathology: none sent Condition: stable Disposition: PACU Indications for Procedure: 74-year-old patient seen with progressive left knee pain. After having treatment options discussed, she elected to proceed with arthroscopy. Operative Findings: See description of procedure Description of Procedure: Patient was taken to the operative suite. Patient underwent a general anesthetic by the department of anesthesia. Patient was given preoperative antibiotics. The left lower extremity was placed in a well-padded arthroscopic leg hinds. The left leg was prepped and draped in the normal sterile orthopedic fashion. A lateral parapatellar and suprapatellar incision was made. Trochars were inserted. Arthroscopy was initiated. Suprapatellar pouch revealed diffuse thick reactive synovitis. The patellofemoral joint appeared to articulate congruently. There was grade II chondromalacia changes of the patella without significant tears. The scope was guided into the medial gutter. No loose bodies or plica were identified. The scope was then guided into the medial compartment. A medial parapatellar incision was made. Trocar inserted followed by probe. There was a complex tear involving the posterior horn and mid body of the medial meniscus. There were grade III/IV chondromalacia changes along the medial femoral condyle with some osteochondral flap tears present. There were grade II/III chondromalacia changes of the medial tibial plateau and thick reactive synovitis anteriorly. I performed a partial medial meniscectomy getting down to stable meniscal tissue. I performed a chondroplasty of the medial femoral condyle getting down to stable osteochondral tissue followed by a partial synovectomy decompressing the reactive synovitis. There was an area of grade IV chondromalacia involving the weightbearing surface of the medial femoral condyle measuring just under centimeter. I introduced a 60 degree microfracture awl and I performed a microfracture to the area of grade IV chondromalacia penetrating the bone with resultant bleeding at the microfracture site. The residual meniscus was probed and was found to be stable. The residual osteochondral surface was stable. There was good decompression of the synovitis. Scope and probe were then guided into the intercondylar notch. Cruciates were identified, probed and found to be stable. The scope and probe were then guided into lateral compartment. There were tears involving the posterior horn and mid body lateral meniscus. There were grade II/III chondromalacia changes of both the lateral femoral condyle and tibial plateau without significant tears. There was some thick reactive synovitis anteriorly. I performed a partial lateral meniscectomy getting down to stable meniscal tissue. I performed a partial synovectomy decompressing the reactive synovitis. The residual meniscus appeared stable. There was good decompression of the synovitis. The scope was in guided back into the suprapatellar compartment. I introduced a motorized shaver into the suprapatellar compartment and debrided out some piecemeal fragments of meniscus that I encountered. I performed a partial synovectomy decompressing the reactive synovitis. The shaver was removed. There was good decompression of the synovitis. Instruments were now removed from the joint. The joint was infiltrated with .25% Marcaine. Steri- Strips were applied to the portal sites. Sterile dressings were applied. The patient was placed into a ABIOLA hose. No tourniquet was utilized. The patient was awakened, transferred to a bed and taken to recovery stable satisfactory condition.
[2025-01-10 10:02] VITALS: PULSE 56
[2025-01-10 10:11] VITALS: RESP 16
[2025-01-10 10:33] VITALS: BP 122/57
== END 2025-01-10 11:17 | disposition home or self-care (01) ==
LOC: OR 07:00
PROVIDERS: ATTEND Orthopaedic Surgery
DX: S83.242A Other tear of medial meniscus, current injury, left knee, initial encounter (principal); S83.282A Other tear of lateral meniscus, current injury, left knee, initial encounter; M65.862 Other synovitis and tenosynovitis, left lower leg; M94.262 Chondromalacia, left knee; I25.10 Atherosclerotic heart disease of native coronary artery without angina pectoris; N18.2 Chronic kidney disease, stage 2 (mild); G43.909 Migraine, unspecified, not intractable, without status migrainosus; Z01.810 Encounter for preprocedural cardiovascular examination; Z88.2 Allergy status to sulfonamides; Z79.899 Other long term (current) drug therapy; X58.XXXA Exposure to other specified factors, initial encounter
CPT/HCPCS: 29880; 29876; 29879; J2250; J1100; J0690; J2405; J2003; J3010; J1885; J2704; J0665